=== PATIENT | female | born 1935 | race Hispanic/Latino ===

== ENCOUNTER 2017-08-27 09:54 | Inpatient (IN) | payer MEDICARE ==
[2017-08-27 11:12] VITALS: BMI 25.8
[2017-08-27 12:11] LABS: BASO # 0.03 K/mm3 (0.0-2.0); BASO % 0.4 % (0.0-3.0); EOS # 0.1 (0.0-0.7); GRAN # 4.46 (1.4-6.5); GRAN % 65.3 % (50.0-68.0); HEMOGLOBIN 12.8 g/dL (12.0-16.0); LYMPH # 1.7 (1.2-3.4); LYMPH % 25.1 % (22.0-35.0); MEAN CELL VOLUME 93.5 fl (80.0-105.0); MEAN CORPUSCULAR HEMOGLOBIN 31.9 pg (25.0-35.0); MEAN CORPUSCULAR HGB CONC 34.1 g/dl (31.0-37.0); MEAN PLATELET VOLUME 9.7 fl (7.0-11.0); MONO # 0.5 (0.1-0.6); MONO % 7.2 % (1.0-6.0); RBC 4.01 10^6/uL (3.5-6.1); RED CELL DISTRIBUTION WIDTH 12.8 % (11.5-14.5); WHITE BLOOD COUNT 6.8 10^3/ul (4.5-11.0)
[2017-08-27 12:25] LABS: ALB/GLOB RATIO 1.3 (1.1-1.8); ALBUMIN 4.5 g/dL (3.0-4.8); ALT/SGPT 28 U/L (7-56); AST/SGOT 27 U/L (14-36); BLOOD UREA NITROGEN 20 mg/dL (7-21); CALCIUM 9.9 mg/dL (8.4-10.5); GFR AFRICAN-AMERICAN > 60; GFR NON-AFRICAN AMERICAN > 60
[2017-08-27 12:34] LABS: INR 1.01 (0.93-1.08); PARTIAL THROMBOPLASTIN TIME 33.3 Seconds (25.1-36.5); PROTHROMBIN TIME 11.6 SECONDS (9.4-12.5)
--- NOTE | 2017-08-27 13:31 | ED PDOC ---
Arrival/HPI - General Chief Complaint: Lower Extremity Problem/Injury Time Seen by Provider: 08/27/17 11:26 Historian: Patient - History of Present Illness Narrative History of Present Illness (Text): 08/27/17 13:26 82yo female with pmhx of hypertension present with complaint of worsening cellulitis to her left lower leg. Patient states she was diagnosed by her PMD and has been on two different antibiotics at different times. Notes that the right lower leg infection improved, but the left became worse. she denies fever chills, nausea, calf pain, Le edema, chest pain, any other complaint. Past Medical History - Provider Review Nursing Documentation Reviewed: Yes - Cardiac Hx Hypertension: Yes - Musculoskeletal/Rheumatological Hx Arthritis: Yes - Psychiatric Hx Substance Use: No - Surgical History Hx Appendectomy: Yes Family/Social History - Physician Review Nursing Documentation Reviewed: Yes Family/Social History: Unknown Family HX Smoking Status: Unknown If Ever Smoked Hx Alcohol Use: No Hx Substance Use: No Allergies/Home Meds Allergies/Adverse Reactions: Allergies No Known Allergies Allergy (Verified 08/27/17 11:43) Home Medications: Home Meds Medication Instructions Recorded Confirmed Folic Acid [Folic Acid] 1 tab PO DAILY 08/27/17 08/27/17 Lisinopril [Zestril] 10 mg PO DAILY 08/27/17 08/27/17 Meloxicam [Mobic] 1 tab PO DAILY 08/27/17 08/27/17 Methotrexate 10 mg PO WED 08/27/17 08/27/17 Preservision Areds 2 Softgel 2 units PO BID 08/27/17 08/27/17 Review of Systems - Physician Review All systems were reviewed & negative as marked: Yes - Review of Systems Constitutional: Normal Eyes: Normal ENT: Normal Respiratory: Normal Cardiovascular: Normal Gastrointestinal: Normal Genitourinary Female: Normal Musculoskeletal: Normal Skin: Cellulitis (Left lower leg) Neurological: Normal Endocrine: Normal Hemo/Lymphatic: Normal Psychiatric: Normal Physical Exam Vital Signs Reviewed: Yes Vital Signs Temp Pulse Resp BP Pulse Ox 08/27/17 14:43 83 16 144/86 99 08/27/17 12:43 82 16 155/72 H 99 08/27/17 11:12 97.3 F L 72 16 165/73 H 98 Temperature: Afebrile Blood Pressure: Normal Pulse: Regular Respiratory Rate: Normal Appearance: Positive for: Well-Appearing, Non-Toxic, Comfortable Pain Distress: None Mental Status: Positive for: Alert and Oriented X 3 - Systems Exam Head: Present: Atraumatic, Normocephalic Pupils: Present: PERRL Extroacular Muscles: Present: EOMI Conjunctiva: Present: Normal Mouth: Present: Moist Mucous Membranes Neck: Present: Normal Range of Motion Respiratory/Chest: Present: Clear to Auscultation, Good Air Exchange. No: Respiratory Distress, Accessory Muscle Use Cardiovascular: Present: Regular Rate and Rhythm, Normal S1, S2. No: Murmurs Abdomen: No: Tenderness, Distention, Peritoneal Signs Back: Present: Normal Inspection Upper Extremity: Present: Normal Inspection. No: Cyanosis, Edema Lower Extremity: Present: NORMAL PULSES, Normal ROM, Tenderness (Left lower chin /anterior leg), Erythema (Left lower leg), Temperature Abnormalties (Warm to touch - left lower leg), Neurovascularly Intact. No: Edema, CALF TENDERNESS, Swelling Neurological: Present: GCS=15, CN II-XII Intact, Speech Normal Skin: Present: Warm, Dry, Normal Color. No: Rashes Psychiatric: Present: Alert, Oriented x 3, Normal Insight, Normal Concentration Medical Decision Making ED Course and Treatment: 08/27/17 20:08 Pt was not febrile, hemodynamically stable and comfortable in ED. She however had left lower extremity cellulitis. She failed outpt oral abx and will be admitted for IV abx. Vanco and Rocephin was ordered Blood culture pending EKG NSR @68bpm CXR NAD Doppler US - Negative for DVT Case was DW Dr. Del Real and he accepted pt for admission. 0 - Lab Interpretations Lab Results: 08/27/17 12:00 08/27/17 12:00 Lab Results 08/27/17 12:00: PT 11.6, INR 1.01, APTT 33.3 08/27/17 12:00: Sodium 145, Potassium 4.1, Chloride 109 H, Carbon Dioxide 24, Anion Gap 16, BUN 20, Creatinine 0.7, Est GFR ( Amer) > 60, Est GFR (Non- Af Amer) > 60, Random Glucose 102, Calcium 9.9, Total Bilirubin 0.5, AST 27, ALT 28, Alkaline Phosphatase 90, Total Protein 7.8, Albumin 4.5, Globulin 3.3, Albumin/Globulin Ratio 1.3 08/27/17 12:00: WBC 6.8, RBC 4.01, Hgb 12.8, Hct 37.5, MCV 93.5, MCH 31.9, MCHC 34.1, RDW 12.8, Plt Count 296, MPV 9.7, Gran % 65.3, Lymph % (Auto) 25.1, Placer % (Auto) 7.2 H, Eos % (Auto) 2.0, Baso % (Auto) 0.4, Gran # 4.46, Lymph # (Auto ) 1.7, Placer # (Auto) 0.5, Eos # (Auto) 0.1, Baso # (Auto) 0.03 - RAD Interpretation Radiology Orders: 08/27/17 13:59 DUPLEX LOWER EXTRM VEIN BILAT [US] Stat - Medication Orders Current Medication Orders: Folic Acid (Folic Acid) 1 mg PO DAILY [facility] Furosemide (Lasix) 40 mg IVP DAILY [facility] Ceftriaxone Sodium (Rocephin 1 Gram Ivpb) 1 gm in 100 mls @ 100 mls/hr IVPB DAILY [facility] PRN Reason: Protocol Vancomycin HCl (Vancomycin 1gm) 1 gm in 250 mls @ 167 mls/hr IVPB Q12H [facility] PRN Reason: Protocol Lisinopril (Zestril) 10 mg PO DAILY [facility] Meloxicam (Mobic) 15 mg PO DAILY [facility] Discontinued Medications Ceftriaxone Sodium (Rocephin 1 Gram Ivpb) 1 gm in 100 mls @ 200 mls/hr IVPB STAT STA PRN Reason: Protocol Stop: 08/27/17 14:29 Last Admin: 08/27/17 14:25 Dose: 200 mls/hr eMAR Start Stop Document 08/27/17 14:25 MS (Rec: 08/27/17 14:26 MS [id number]) Intravenous Solution Start Date 08/27/17 Start Time 14:26 End Date 08/27/17 End time 14:56 Total Infusion Time 30 Vancomycin HCl (Vancomycin 1gm) 1 gm in 250 mls @ 167 mls/hr IVPB STAT STA PRN Reason: Protocol Stop: 08/27/17 15:29 Last Admin: 08/27/17 15:25 Dose: 167 mls/hr eMAR Start Stop Document 08/27/17 15:25 MS (Rec: 08/27/17 15:26 MS [id number]) Intravenous Solution Start Date 08/27/17 Start Time 15:25 End Date 08/27/17 End time 16:55 Total Infusion Time 90 Meloxicam (Mobic) 7.5 mg PO DAILY [facility] Disposition/Present on Arrival - Present on Arrival Any Indicators Present on Arrival: No History of DVT/PE: No History of Uncontrolled Diabetes: No Urinary Catheter: No History of Decub. Ulcer: No History Surgical Site Infection Following: None - Disposition Have Diagnosis and Disposition been Completed?: Yes Diagnosis: Cellulitis Disposition: HOSPITALIZED Disposition Time: 14:05 Patient Problems: Current Active Problems Problem Status Onset Cellulitis Acute Condition: STABLE
[2017-08-27] MEDS ORDERED: cefTRIAXone 1 gm 1 GM/100 ML BAG IVPB STA (14:00)
[2017-08-27] MEDS ORDERED: Vancomycin 1gm in NS 250ml 1 GM/250 ML BAG IVPB STA (14:00)
--- NOTE | 2017-08-27 15:31 | RAD ---
HISTORY: admission COMPARISON: No prior. FINDINGS: LUNGS: No active pulmonary disease. PLEURA: No significant pleural effusion identified, no pneumothorax apparent. CARDIOVASCULAR: Normal. OSSEOUS STRUCTURES: No significant abnormalities. VISUALIZED UPPER ABDOMEN: Normal. OTHER FINDINGS: None. IMPRESSION: No active disease.
--- NOTE | 2017-08-27 16:57 | US ---
HISTORY: Leg pain and swelling. Evaluate for DVT PHYSICIAN(S): Filiberto Okeefe MD. TECHNIQUE: Duplex sonography and color-flow Doppler with graded compression were used to evaluate the deep venous systems of both lower extremities. The exam is limited by edema. The tibial veins are not well seen FINDINGS: The visualized deep venous systems of both lower extremities are sonographically normal and compressible. Normal wave forms and augmentation are seen. There is no sonographic evidence for deep venous thrombosis in the visualized segments of both lower extremities. IMPRESSION: No sonographic evidence for deep venous thrombosis in the visualized segments of both lower extremities.
[2017-08-27 20:32] LABS: HDL CHOLESTEROL 73 mg/dL (29-60)
[2017-08-27 20:43] LABS: LDL CHOLESTEROL 73 mg/dL (0-129)
--- NOTE | 2017-08-27 22:44 | CARD ---
APPROVED REPORT EKG Measurement Heart [id number] <Conclusion> Normal sinus rhythm Cannot rule out Anterior infarct, age undetermined Abnormal ECG
[2017-08-27] MEDS: Vancomycin 1gm in NS 250ml 1 GM/250 ML BAG IVPB SCH (22:47)
[2017-08-28] MEDS: Vancomycin 1gm in NS 250ml 1 GM/250 ML BAG IVPB SCH ×2 (06:38→18:04)
--- NOTE | 2017-08-28 07:00 | HP ---
HISTORY OF PRESENT ILLNESS: Patient is an 82-year-old, patient of Dr. Chase, who came to emergency room because of increasing leg swelling. Both legs are swollen, but left is more than the right. She was given antibiotics by her primary care doctor almost 2 weeks ago and the right leg got a little better, but left has still been red, warm, and swollen. Denies any chest pain. No shortness of breath. No nausea. No vomiting. PAST MEDICAL HISTORY: Significant for: 1. Hypertension. 2. Generalized osteoarthritis. ALLERGIES: SHE IS NOT ALLERGIC TO ANY MEDICATION. PAST SURGICAL HISTORY: Significant for appendectomy. MEDICATIONS AT HOME: She is on methotrexate, she takes 4 pills of 2.5 mg every Saturday. She is on Mobic 15 mg daily, lisinopril 10 mg daily, folic acid 1 mg daily. SOCIAL HISTORY: Denies smoking, drinking or alcohol use. PHYSICAL EXAMINATION: GENERAL: She is awake, alert, oriented, communicative. VITAL SIGNS: She is afebrile, pulse 83, respirations 16, blood pressure 140/86. LUNGS: Bilateral fair airflow. No rhonchi or crackle. HEART: S1 and S2 audible. ABDOMEN: Soft and nontender. No rebound. No guarding. NEUROLOGIC: Patient is awake, alert, oriented, communicative. EXTREMITIES: Bilateral legs, erythema, left more than the right. LABORATORY DATA: WBC 6.8, hemoglobin 12.8, hematocrit 37.5, platelets 296. PT 11.6, INR 1.06, PTT 33.3. Chemistry: Sodium 145, potassium 4.1, chloride 109, CO2 of 24, BUN 20, creatinine 0.7, blood sugar of 102. LFTs are within normal limit. She has bilateral leg Doppler negative for DVT . ASSESSMENT AND PLAN: 1. Left leg cellulitis. 2. History of rheumatoid arthritis. 3. Hypertension. 4. Hyperlipidemia. PLAN: So plan is, we will start patient on IV Lasix. We will start on IV antibiotic. Monitor the electrolyte since she is on diuretics. We will resume her usual medication. We will follow up the patient in the a.m. Dwight Del Real MD
[2017-08-28 08:06] LABS: ALB/GLOB RATIO 1.1 (1.1-1.8); ALBUMIN 3.3 g/dL (3.0-4.8); ALT/SGPT 31 U/L (7-56); AST/SGOT 24 U/L (14-36); BLOOD UREA NITROGEN 19 mg/dL (7-21); CALCIUM 8.9 mg/dL (8.4-10.5); GFR AFRICAN-AMERICAN > 60; GFR NON-AFRICAN AMERICAN > 60
[2017-08-28] MEDS: cefTRIAXone 1 gm 1 GM/100 ML BAG IVPB SCH (09:17)
[2017-08-28] MEDS: PRESERVISION AREDS PO SCH ×3 (10:00→18:04)
[2017-08-28] MEDS ORDERED: PRESERVISION AREDS PO SCH (10:00)
[2017-08-28] MEDS ORDERED: Meloxicam 7.5 MG TAB PO SCH ×2 (10:00)
--- NOTE | 2017-08-28 15:11 | PN ---
DATE: 08/28/2017 SUBJECTIVE: The patient is 82 years old, seen and examined, lying in bed, seems to be comfortable. Leg swelling has improved somewhat. No nausea or vomiting. No fever. No chills. PHYSICAL EXAMINATION: VITAL SIGNS: She is afebrile, pulse 66, respirations 18, blood pressure 141/67. LUNGS: Bilateral good airflow. No rhonchi or crackle. HEART: S1 and S2 audible. ABDOMEN: Soft. Nontender. No rebound. No guarding. NEUROLOGICAL: The patient is awake, alert, oriented, communicative. EXTREMITIES: Bilateral legs shows erythema, left more than the right plus +1 edema, left leg. LABORATORY DATA: Bilateral leg Doppler is negative. Blood cultures are negative. ASSESSMENT: 1. Left leg cellulitis and edema. 2. History of rheumatoid arthritis. 3. Hypertension. PLAN: We will continue the patient on vancomycin and Rocephin. Dr. Paige has been consulted. I will order for Lotrisone lotion to apply to the left camejo area. We will follow up this patient in the a.m. Dwight Del Real MD
[2017-08-28] MEDS ORDERED: Clotrimazole 1% Cream(30 gm) TOP SCH (18:00)
[2017-08-29] MEDS: Vancomycin 1gm in NS 250ml 1 GM/250 ML BAG IVPB SCH ×2 (06:01→18:11)
--- NOTE | 2017-08-29 06:17 | CON ---
DATE: 08/28/2017 HISTORY OF PRESENT ILLNESS: An 82-year-old female seen at bedside for consultation, evaluation and management of bilateral lower extremity pain and swelling. The patient reports a long history of recurrent bouts of lower extremity cellulitis which was usually resolved with a 1-week course of oral antibiotics. However, over the last few weeks, the patient's legs have become increasingly swollen, become increasingly edematous, erythematous and painful despite being on 2 weeks of oral antibiotics by her primary care doctor, Dr. Chase, who suggested she be admitted to the hospital for further evaluation and IV antibiotics. The patient states the left leg is much more painful than the right. DVTs have been ruled out. PAST MEDICAL HISTORY: Significant for essential hypertension, osteoarthritis and rheumatoid arthritis. ALLERGIES: SHE HAS NO KNOWN DRUG ALLERGIES. SOCIAL HISTORY: The patient is not , lives alone. Denies any history of smoking, alcohol abuse or alcohol usage. PAST SURGICAL HISTORY: Significant for appendectomy. FAMILY HISTORY: Unremarkable. HOME MEDICATIONS: Include lisinopril, Mobic, folic acid and methotrexate. OBJECTIVE: There is palpable pedal pulses noted bilaterally. Both lower extremity avoid of any appreciable edema at this time. There is noted to be absent pedal hair growth. Both lower extremities present with erythema and calor with left leg being greater than the right. There is pain upon palpation at the gastroc soleus complex of the left leg. There is no open lesions noted on either of the legs. There are no interdigital macerations. Both lower legs were examined for any clinical signs of portal of entry and there was found to be none. Both lower extremities present with thin, shiny, discolored skin with chronic venous stasis changes. IMAGING STUDIES: Duplex of the lower extremities bilaterally reveals no sonographic evidence for deep vein thrombosis. LABORATORY FINDINGS: Reveal a white count of 6.8, hemoglobin of 12.8, hematocrit of 37.5, platelet count of 296. ASSESSMENT: Bilateral lower extremity cellulitis, left greater than right. Deep venous thrombosis has been ruled out. PLAN: The patient's legs were examined. Dr. Del Real's note was read and appreciated. Agree with applying Lotrisone cream in an order to relieve her itching as well as decrease her erythema. Typically, cellulitis is more unilateral than bilateral. We would recommend vascular consult with Dr. Filiberto Okeefe to evaluate. We will order light compression stockings to be applied to both lower legs and order a tib-fib x-ray of the left leg to rule out any underlying pathology. The patient will be seen and followed daily. Augusto Paige DPM
[2017-08-29 09:07] LABS: HEMOGLOBIN 11.6 g/dL (12.0-16.0); MEAN CORPUSCULAR HEMOGLOBIN 31.9 pg (25.0-35.0); MEAN CORPUSCULAR HGB CONC 33.9 g/dl (31.0-37.0); MEAN PLATELET VOLUME 9.5 fl (7.0-11.0); RBC 3.64 10^6/uL (3.5-6.1); RED CELL DISTRIBUTION WIDTH 13.1 % (11.5-14.5); WHITE BLOOD COUNT 4.6 10^3/ul (4.5-11.0)
[2017-08-29 09:10] LABS: BLOOD UREA NITROGEN 20 mg/dL (7-21); CALCIUM 9.1 mg/dL (8.4-10.5); GFR AFRICAN-AMERICAN > 60; GFR NON-AFRICAN AMERICAN > 60
--- NOTE | 2017-08-29 10:12 | CP.PCM.PN ---
<Danile Bishopyazminlety - Last Filed: 08/29/17 10:05> Subjective - Date & Time of Evaluation Date of Evaluation: 08/29/17 Time of Evaluation: 10:05 - Subjective Subjective: Podiatry Progress note: Dr. Paige/Dr. Adams 82 year old female was seen and evaluated at bedside for bilateral LE cellulitis. Patient is AAOx3 and is in NAD. Patient reports that the right side feels a lot better today, left side still causes her pain. Denies of any acute overnight events. Denies of any other pedal complains at this time. Denies of F/ N/V/C/SOB/CP/headaches. Objective - Vital Signs/Intake and Output Vital Signs (last 24 hours): Temp Pulse Resp BP Pulse Ox 97.8 F 66 20 155/65 H 98 08/29/17 06:00 08/29/17 06:00 08/29/17 06:00 08/29/17 06:00 08/29/17 06:00 Intake and Output: 08/29/17 08/29/17 06:59 18:59 Intake Total 500 Balance 500 - Medications Medications: Current Medications Betamethasone/Clotrimazole (Lotrisone) 0 gm TOP BID [facility] Clotrimazole (Lotrimin 1%) 0 gm TOP BID [facility] Last Admin: 08/28/17 18:15 Dose: 1 applic Folic Acid (Folic Acid) 1 mg PO DAILY [facility] Last Admin: 08/28/17 09:17 Dose: 1 mg Furosemide (Lasix) 40 mg IVP DAILY [facility] Last Admin: 08/28/17 09:22 Dose: 40 mg Home Med (Home Med) 1 unit PO BID [facility] Ceftriaxone Sodium (Rocephin 1 Gram Ivpb) 1 gm in 100 mls @ 100 mls/hr IVPB DAILY [facility] PRN Reason: Protocol Last Admin: 08/28/17 09:17 Dose: 100 mls/hr Vancomycin HCl (Vancomycin 1gm) 1 gm in 250 mls @ 167 mls/hr IVPB Q12H [facility] PRN Reason: Protocol Last Admin: 08/29/17 06:01 Dose: 167 mls/hr Lisinopril (Zestril) 10 mg PO DAILY [facility] Last Admin: 08/28/17 09:22 Dose: 10 mg Meloxicam (Mobic) 15 mg PO DAILY [facility] Last Admin: 08/28/17 09:18 Dose: 15 mg - Labs Labs: 08/29/17 08:50 08/29/17 08:50 PT 11.6 SECONDS (9.4-12.5) 08/27/17 12:00 INR 1.01 (0.93-1.08) 08/27/17 12:00 APTT 33.3 Seconds (25.1-36.5) 08/27/17 12:00 - Constitutional Appears: Well, Non-toxic, No Acute Distress - Extremities Exam Additional comments: VASC: DP/PT pulses are palpable 2/4, Cap refill time: < 3 sec to all digits, Temp gradient warm to warm from proximal to distal on the left and warm to cool from proximal to distal on the right (warmth decreased on the left from yesterday), no pitting or non-pitting edema noted DERM: erythema localized mainly surrounding the distal leg (appears to be decreased from yesterday), no open lesions NEURO: Protective sensation grossly intact ORTHO: Pain on palpation of the left distal leg - Neurological Exam Neurological Exam: Alert, Awake, Oriented x3 - Psychiatric Exam Psychiatric exam: Normal Affect, Normal Mood Assessment and Plan - Assessment and Plan (Free Text) Assessment: 82 year old female was evaluated for cellulitis vs. vasculitis Plan: Patient seen and evaluated at bedside with attending Dr. Paige Labs, vitals and charts reviewed - afebrile, no leukocytosis Lotrisone cream applied to b/l LE Continue IV abx as per ID - Vancomycin, Ceftriaxone Vascular consult Will continue to monitor patient while in-house <Augusto Paige - Last Filed: 08/30/17 13:39> Objective - Vital Signs/Intake and Output Vital Signs (last 24 hours): Temp Pulse Resp BP Pulse Ox 98 F 63 18 142/69 97 08/30/17 06:00 08/30/17 10:39 08/30/17 06:00 08/30/17 10:40 08/30/17 06:00 Intake and Output: 08/30/17 08/30/17 06:59 18:59 Intake Total 620 Balance 620 - Medications Medications: Current Medications Betamethasone/Clotrimazole (Lotrisone) 0 gm TOP BID [facility] Last Admin: 08/30/17 10:41 Dose: 1 applic Folic Acid (Folic Acid) 1 mg PO DAILY [facility] Last Admin: 08/30/17 10:39 Dose: 1 mg Furosemide (Lasix) 40 mg IVP DAILY [facility] Last Admin: 08/30/17 10:40 Dose: 40 mg Home Med (Home Med) 1 unit PO BID [facility] Last Admin: 08/30/17 10:40 Dose: 1 unit Ceftriaxone Sodium (Rocephin 1 Gram Ivpb) 1 gm in 100 mls @ 100 mls/hr IVPB DAILY [facility] PRN Reason: Protocol Last Admin: 08/30/17 10:39 Dose: 100 mls/hr Vancomycin HCl (Vancomycin 1gm) 1 gm in 250 mls @ 167 mls/hr IVPB Q12H [facility] PRN Reason: Protocol Last Admin: 08/30/17 06:08 Dose: 167 mls/hr Lisinopril (Zestril) 10 mg PO DAILY [facility] Last Admin: 08/30/17 10:39 Dose: 10 mg Meloxicam (Mobic) 15 mg PO DAILY [facility] Last Admin: 08/30/17 10:39 Dose: 15 mg - Labs Labs: 08/29/17 08:50 08/29/17 08:50 PT 11.6 SECONDS (9.4-12.5) 08/27/17 12:00 INR 1.01 (0.93-1.08) 08/27/17 12:00 APTT 33.3 Seconds (25.1-36.5) 08/27/17 12:00 Attending/Attestation - Attestation I have personally seen and examined this patient.: Yes I have fully participated in the care of the patient.: Yes I have reviewed all pertinent clinical information, including history, physical exam and plan: Yes
[2017-08-29] MEDS: Clotrimazole/Betamethasone Cream(15 gm) TOP SCH ×2 (10:30→18:11)
[2017-08-29] MEDS: Home Med 1 UNIT PO SCH ×2 (10:31→18:11)
[2017-08-29] MEDS: cefTRIAXone 1 gm 1 GM/100 ML BAG IVPB SCH (10:31)
--- NOTE | 2017-08-29 14:03 | PN ---
DATE: 08/29/2017 SUBJECTIVE: The patient is 82 years old, seen and examined, lying in bed, seems to be comfortable. No nausea or vomiting. No diarrhea. PHYSICAL EXAMINATION: VITAL SIGNS: The patient is afebrile, pulse 66, respirations 20, blood pressure 155/69. LUNGS: Bilateral fair airflow. No rhonchi or crackle. HEART: S1 and S2 audible. ABDOMEN: Soft. Nontender. No rebound. No guarding. NEUROLOGICAL: The patient is awake and alert, able to communicate, ambulatory. EXTREMITIES: Bilateral legs cellulitis, left more pronounced than the right. ASSESSMENT: 1. Left leg cellulitis. 2. History of rheumatoid arthritis. 3. Hypertension. PLAN: We will continue antibiotics for now. Currently, she is on vancomycin and Rocephin. I will get ID input. Plan for possible skin biopsy. We will reevaluate the patient in the a.m. Dwight Del Real MD
[2017-08-29 15:03] VITALS: RESP 18
--- NOTE | 2017-08-29 17:31 | RAD ---
PROCEDURE: Radiographs of the left tibia and fibula. HISTORY: pain, and swelling in left lower leg COMPARISON: None available. TECHNIQUE: Frontal and lateral views obtained. FINDINGS: BONES: No fracture or destructive lesion. JOINT SPACES: Unremarkable. OTHER FINDINGS: None. IMPRESSION: Unremarkable radiographs of the left tibia and fibula.
[2017-08-30] MEDS: Vancomycin 1gm in NS 250ml 1 GM/250 ML BAG IVPB SCH (06:08)
[2017-08-30] MEDS: cefTRIAXone 1 gm 1 GM/100 ML BAG IVPB SCH (10:39)
[2017-08-30] MEDS: Home Med 1 UNIT PO SCH (10:40)
[2017-08-30] MEDS: Clotrimazole/Betamethasone Cream(15 gm) TOP SCH (10:41)
--- NOTE | 2017-08-30 12:45 | CP.PCM.PN ---
<DarioDanielyazminlety - Last Filed: 08/30/17 12:38> Subjective - Date & Time of Evaluation Date of Evaluation: 08/30/17 Time of Evaluation: 12:38 - Subjective Subjective: Podiatry Progress note: Dr. Paige/Dr. Adams 82 year old female was seen and evaluated at bedside for bilateral LE cellulitis. Patient is AAOx3 and is in NAD.Denies of any acute overnight events. Denies of any other pedal complains at this time. Denies of F/N/V/C/SOB/ CP/headaches. Objective - Vital Signs/Intake and Output Vital Signs (last 24 hours): Temp Pulse Resp BP Pulse Ox 98 F 63 18 142/69 97 08/30/17 06:00 08/30/17 10:39 08/30/17 06:00 08/30/17 10:40 08/30/17 06:00 Intake and Output: 08/30/17 08/30/17 06:59 18:59 Intake Total 620 Balance 620 - Medications Medications: Current Medications Betamethasone/Clotrimazole (Lotrisone) 0 gm TOP BID [facility] Last Admin: 08/30/17 10:41 Dose: 1 applic Folic Acid (Folic Acid) 1 mg PO DAILY [facility] Last Admin: 08/30/17 10:39 Dose: 1 mg Furosemide (Lasix) 40 mg IVP DAILY [facility] Last Admin: 08/30/17 10:40 Dose: 40 mg Home Med (Home Med) 1 unit PO BID [facility] Last Admin: 08/30/17 10:40 Dose: 1 unit Ceftriaxone Sodium (Rocephin 1 Gram Ivpb) 1 gm in 100 mls @ 100 mls/hr IVPB DAILY [facility] PRN Reason: Protocol Last Admin: 08/30/17 10:39 Dose: 100 mls/hr Vancomycin HCl (Vancomycin 1gm) 1 gm in 250 mls @ 167 mls/hr IVPB Q12H [facility] PRN Reason: Protocol Last Admin: 08/30/17 06:08 Dose: 167 mls/hr Lisinopril (Zestril) 10 mg PO DAILY [facility] Last Admin: 08/30/17 10:39 Dose: 10 mg Meloxicam (Mobic) 15 mg PO DAILY [facility] Last Admin: 08/30/17 10:39 Dose: 15 mg - Labs Labs: 08/29/17 08:50 08/29/17 08:50 PT 11.6 SECONDS (9.4-12.5) 08/27/17 12:00 INR 1.01 (0.93-1.08) 08/27/17 12:00 APTT 33.3 Seconds (25.1-36.5) 08/27/17 12:00 - Constitutional Appears: Well, Non-toxic, No Acute Distress - Extremities Exam Additional comments: VASC: DP/PT pulses are palpable 2/4, Cap refill time: < 3 sec to all digits, Temp gradient warm to warm from proximal to distal on the left and warm to cool from proximal to distal on the right (warmth decreased on the left from yesterday), no pitting or non-pitting edema noted DERM: erythema localized mainly surrounding the distal leg (appears to be decreased from yesterday), no open lesions NEURO: Protective sensation grossly intact ORTHO: Pain on palpation of the left distal leg - Neurological Exam Neurological Exam: Alert, Awake, Oriented x3 - Psychiatric Exam Psychiatric exam: Normal Affect, Normal Mood Assessment and Plan - Assessment and Plan (Free Text) Assessment: 82 year old female was evaluated for cellulitis vs. vasculitis Plan: Patient seen and evaluated at bedside with attending Dr. Paige Labs, vitals and charts reviewed - afebrile, no leukocytosis Consent taken for 2 mm punch bx 3 cc of 1% lidocaine plain administered prior to the punch bx Punch bx taken from the medial ankle and sent to pathology Tolerated the procedure well Dressing applied using adaptic, optifoam, DSD and POPPY No acute pathology noted on x-rays Continue IV abx as per ID - Vancomycin, Ceftriaxone Vascular consult Will continue to monitor patient while in-house <Augusto Paige - Last Filed: 08/30/17 13:41> Objective - Vital Signs/Intake and Output Vital Signs (last 24 hours): Temp Pulse Resp BP Pulse Ox 98 F 63 18 142/69 97 08/30/17 06:00 08/30/17 10:39 08/30/17 06:00 08/30/17 10:40 08/30/17 06:00 Intake and Output: 08/30/17 08/30/17 06:59 18:59 Intake Total 620 Balance 620 - Medications Medications: Current Medications Betamethasone/Clotrimazole (Lotrisone) 0 gm TOP BID [facility] Last Admin: 08/30/17 10:41 Dose: 1 applic Folic Acid (Folic Acid) 1 mg PO DAILY [facility] Last Admin: 08/30/17 10:39 Dose: 1 mg Furosemide (Lasix) 40 mg IVP DAILY [facility] Last Admin: 08/30/17 10:40 Dose: 40 mg Home Med (Home Med) 1 unit PO BID [facility] Last Admin: 08/30/17 10:40 Dose: 1 unit Ceftriaxone Sodium (Rocephin 1 Gram Ivpb) 1 gm in 100 mls @ 100 mls/hr IVPB DAILY [facility] PRN Reason: Protocol Last Admin: 08/30/17 10:39 Dose: 100 mls/hr Vancomycin HCl (Vancomycin 1gm) 1 gm in 250 mls @ 167 mls/hr IVPB Q12H [facility] PRN Reason: Protocol Last Admin: 08/30/17 06:08 Dose: 167 mls/hr Lisinopril (Zestril) 10 mg PO DAILY [facility] Last Admin: 08/30/17 10:39 Dose: 10 mg Meloxicam (Mobic) 15 mg PO DAILY [facility] Last Admin: 08/30/17 10:39 Dose: 15 mg - Labs Labs: 08/29/17 08:50 08/29/17 08:50 PT 11.6 SECONDS (9.4-12.5) 08/27/17 12:00 INR 1.01 (0.93-1.08) 08/27/17 12:00 APTT 33.3 Seconds (25.1-36.5) 08/27/17 12:00 Attending/Attestation - Attestation I have personally seen and examined this patient.: Yes I have fully participated in the care of the patient.: Yes I have reviewed all pertinent clinical information, including history, physical exam and plan: Yes
[2017-08-30 15:02] VITALS: BP 116/67; PULSE 75; TEMP 98.2; O2SAT 96
--- NOTE | 2017-08-30 22:35 | CON ---
DATE: 08/30/2017 LOCATION: Patient is in bed in room 572, bed 1. Patient was seen early this morning. CHIEF COMPLAINT: Left leg infection times several days. HISTORY OF PRESENT ILLNESS: This is an 82-year-old female with hypertension, osteoarthritis, rheumatoid arthritis, on methotrexate, history of appendectomy, tonsillectomy, given antibiotics, admitted on this admission because of a left leg infection. She states that she was given the antibiotic of Z-SERGE as outpatient without improvement and she is admitted for further treatment. REVIEW OF SYSTEMS: Reveals she denies any fevers, chills, nausea, vomiting, chest pain, shortness of breath, or cough. Twelve-point review of systems performed. No dysuria or frequency. No headaches or blurred vision. PAST MEDICAL HISTORY: Significant for hypertension, osteoarthritis, rheumatoid arthritis. PAST SURGICAL HISTORY: . ALLERGIES: PATIENT HAS NO KNOWN ALLERGIES. MEDICATIONS AT HOME: Include methotrexate and Zestril. PHYSICAL EXAMINATION: GENERAL: The patient is in bed, no acute distress, answered questions. VITAL SIGNS: Temperature of 98, heart rate of 63, blood pressure is 150/60, respiratory rate of 18. HEENT: Unremarkable. NECK: Supple. LUNGS: Have decreased breath sounds. HEART: Normal S1 and S2. ABDOMEN: Soft, nontender. No rebound or guarding. EXTREMITIES: Examination of the leg reveals both legs have petechiae, mild rash; however, left leg knee appears to have more erythema, warm to touch. LABORATORY DATA: White count of 6.8, hemoglobin of 12, platelets of 296. Coagulation is noted. Chemistries reveal a BUN of 20, creatinine of 0.7. Microbiology reveals the blood cultures are negative. Patient had an x-ray, which was negative and her chest x-ray, which was negative. X-ray of the leg, which revealed unremarkable. Patient's ultrasound was negative for DVT. ASSESSMENT AND PLAN: This is an 82-year-old female with hypertension, osteoarthritis, rheumatoid arthritis, on methotrexate with a mild left leg cellulitis, who is on vancomycin and ceftriaxone, negative cultures. If the patient is to be discharged, may use p.o. doxycycline for 3 to 5 days, 100 mg p.o. b.i.d. Patient is scheduled for a possible biopsy. Chilango Forbes MD [facility] # [id number]
--- NOTE | 2017-08-31 06:56 | DS ---
HISTORY OF PRESENT ILLNESS: The patient is 82 years old. The patient is seen and examined, doing well. No nausea, vomiting. No diarrhea. Eating and tolerating. PHYSICAL EXAMINATION: VITAL SIGNS: She is afebrile, pulse 63, respiration 18, blood pressure 142/69. LUNGS: Bilaterally good airflow. No rhonchi or crackle. HEART: S1, S2 audible. ABDOMEN: Soft, nontender. No rebound. No guarding. NEUROLOGIC: The patient is awake, alert, oriented, communicative. EXTREMITIES: She has bilateral erythema. Left camejo has erythema, but swelling has improved as compared to before. LABORATORY DATA: WBC is 4.6, hemoglobin 11.6, hematocrit 34.2, platelet 266. Chemistry: Sodium 144, potassium 4.2, chloride 108, CO2 of 26, BUN 20, creatinine 0.7. ASSESSMENT AND PLAN: Left leg cellulitis, etiology still unclear. Left leg edema. PLAN: We will continue IV antibiotics. Biopsy was taken by bedside, we will follow that up. We will start her on supportive stocking and TCU evaluation has been requested. Once she is accepted, she will be transferred to TCU. Dwight Del Real MD
--- NOTE | 2017-08-31 08:55 | DS ---
HISTORY OF PRESENT ILLNESS: The patient is an 82-year-old, who is being treated by Dr. Monet as outpatient with oral antibiotic with no significant relief so she was referred to Emergency Room for evaluation. She does have left camejo erythema. Has been on IV antibiotics, IV diuretics, being followed by Dr. Paige, had biopsy of left camejo skin and being transferred to TCU for completion of course of antibiotics and physical therapy. PHYSICAL EXAMINATION: GENERAL: She is awake, alert, oriented, communicative. VITAL SIGNS: She is afebrile, pulse 75, respirations 18, blood pressure 116/67. LUNGS: Bilateral good airflow. No rhonchi or crackle. HEART: S1, S2 audible. ABDOMEN: Soft, nontender. No rebound. No guarding. NEUROLOGIC: She is awake, alert, oriented, communicative. LABORATORY DATA: Her HDL is 73. Blood cultures are negative. ASSESSMENT: 1. Left leg cellulitis. 2. Rheumatoid arthritis. 3. Hypertension. PLAN: The patient is transferred to TCU. We will resume her medication. Encourage physical therapy. Dr. Paige will follow up patient in TCU. Dwight Del Real MD
== END 2017-08-30 15:13 | DRG 603 ==
LOC: ED 09:54 → ERH 14:18 → 5RSO 16:24
PROVIDERS: ADMIT Internal Medicine; ATTEND Internal Medicine
DX: L03.116 Cellulitis of left lower limb (principal); L03.115 Cellulitis of right lower limb; I10 Essential (primary) hypertension; M06.9 Rheumatoid arthritis, unspecified; E78.5 Hyperlipidemia, unspecified; M15.9 Polyosteoarthritis, unspecified; Z90.49 Acquired absence of other specified parts of digestive tract

== ENCOUNTER 2017-08-30 15:16 | Inpatient (IN) | payer OTHER, MEDICARE ==
[2017-08-30] MEDS: Clotrimazole/Betamethasone Cream(15 gm) TOP SCH (17:55)
[2017-08-30] MEDS: PRESERVISION AREDS PO SCH (17:56)
[2017-08-30] MEDS: Vancomycin 1gm in NS 250ml 1 GM/250 ML BAG IVPB SCH (17:56)
--- NOTE | 2017-08-31 08:02 | CON ---
DATE: 08/31/2017 LOCATION: The patient is seen earlier today in [facility], 321. CHIEF COMPLAINT: Left leg infection times several days. HISTORY OF PRESENT ILLNESS: This is an 82-year-old female with hypertension and osteoarthritis and rheumatoid arthritis. The patient on methotrexate for her rheumatoid arthritis. Developed bilateral lower extremity erythema and left leg more so, was given Z-Trae as outpatient. Admitted to the hospital, started on antibiotics, now transferred to [facility] for further care and physical therapy. Review of systems reveals the patient has no fevers and no chills. No nausea, no vomiting. REVIEW OF SYSTEMS: A 12-point review of systems is performed and no dysuria, frequency. No headaches or blurred vision. No neck pain. No sore throat. PAST MEDICAL HISTORY: Significant for hypertension, osteoarthritis and rheumatoid arthritis. PAST SURGICAL HISTORY: Significant for appendectomy and tonsillectomy. ALLERGIES: THE PATIENT HAS NO KNOWN ALLERGIES. MEDICATIONS AT HOME: Include methotrexate and Zestril. PHYSICAL EXAMINATION: GENERAL: The patient is in bed, in no acute distress with a temperature of 98, blood pressure is 120/60, respiratory rate OF 18, heart rate of 75. HEENT: Examination of HEENT is unremarkable. NECK: Supple. LUNGS: Have decreased breath sounds. HEART: Normal S1, S2. ABDOMEN: Soft, nontender. EXTREMITIES: Examination of leg is less erythema than yesterday, is improved, the left leg. No break in the skin. No discharge. Pulses are intact. ASSESSMENT AND PLAN: An 82-year-old female with hypertension, osteoarthritis and rheumatoid arthritis and a history of appendectomy, tonsillectomy, has no known allergies, admitted the patient on methotrexate now. #1 is left leg cellulitis, improving on vancomycin, Rocephin, may be able to switch to p.o. antibiotics to p.o. doxycycline 100 mg p.o. b.i.d. x5 days. The blood cultures are reported to be negative. X-ray of the tibia-fibula and x-ray is reviewed, which is unremarkable. The patient also had a chest x-ray on 08/27/2017, which is no active disease and an ultrasound. We will follow closely with you. Chilango Boghossian, MD
[2017-08-31] MEDS: Meloxicam 7.5 MG TAB PO SCH (09:37)
[2017-08-31] MEDS: Clotrimazole/Betamethasone Cream(15 gm) TOP SCH (09:39)
[2017-08-31] MEDS: PRESERVISION AREDS PO SCH ×2 (09:41→17:39)
--- NOTE | 2017-08-31 10:17 | CP.PCM.PN ---
<Libra Lomeli - Last Filed: 08/31/17 11:01> Subjective - Date & Time of Evaluation Date of Evaluation: 08/31/17 Time of Evaluation: 10:11 - Subjective Subjective: Podiatry Progress note: Dr. Paige/Dr. Adams 82 yo female was seen and evaluated for bilateral lower extremity cellulitis. Patient is AAOx3 and in NAD. No acute events overnight. She notes that her right leg appears to be improving. She states that she is in no pain. She denies any other pedal complaints at this time. Denies N/V/F/SOB/C/CP. Objective - Vital Signs/Intake and Output Vital Signs (last 24 hours): Temp Pulse Resp BP Pulse Ox 98.5 F 73 20 120/69 08/30/17 21:02 08/30/17 21:02 08/30/17 21:02 08/30/17 21:02 Intake and Output: 08/31/17 08/31/17 06:59 18:59 Intake Total 360 Output Total 1 Balance 359 - Medications Medications: Current Medications Betamethasone/Clotrimazole (Lotrisone) 1 gm TOP BID [facility] PRN Reason: Protocol Last Admin: 08/31/17 09:39 Dose: 1 applic Folic Acid (Folic Acid) 1 mg PO DAILY [facility] PRN Reason: Protocol Last Admin: 08/31/17 09:38 Dose: 1 mg Furosemide (Lasix) 40 mg IVP 0600 [facility] PRN Reason: Protocol Gabapentin (Neurontin) 100 mg PO TID [facility] PRN Reason: Protocol Last Admin: 08/31/17 09:37 Dose: 100 mg Ceftriaxone Sodium (Rocephin 1 Gram Ivpb) 1 gm in 100 mls @ 100 mls/hr IVPB 0600 [facility] PRN Reason: Protocol Vancomycin HCl (Vancomycin 1gm) 1 gm in 250 mls @ 167 mls/hr IVPB 0600,1800 [facility] PRN Reason: Protocol Last Admin: 08/30/17 17:56 Dose: 167 mls/hr Lisinopril (Zestril) 10 mg PO DAILY [facility] PRN Reason: Protocol Last Admin: 08/31/17 09:45 Dose: 10 mg Meloxicam (Mobic) 7.5 mg PO 0800 [facility] PRN Reason: Protocol Last Admin: 08/31/17 09:37 Dose: 7.5 mg Non-Formulary Medication (Preservision Areds 2 Softgel) 2 units PO BID [facility] Last Admin: 08/31/17 09:41 Dose: 2 units - Constitutional Appears: Well, Non-toxic, No Acute Distress - Head Exam Head Exam: ATRAUMATIC, NORMOCEPHALIC - Extremities Exam Additional comments: Vascular: DP and PT pulses are palpable 2/4 b/l, Capillary refill time < 3 sec to all digits b/l, Temp gradient warm to warm from proximal to distal on the left and warm to cool from proximal to distal on the right, no edema noted to bilateral lower extremities Derm: 2mm circular wound s/p punch biopsy to the left medial ankle with 100% granular base. No purulence. No signs of infection. Mild erythema noted to distal left lower extremity circumferentially. Neuro: Gross and protective sensation grossly intact Ortho: Tenderness to palpation of the left distal leg. No tenderness to palpation of right lower extremity - Neurological Exam Neurological Exam: Alert, Awake, Oriented x3 - Psychiatric Exam Psychiatric exam: Normal Affect, Normal Mood Assessment and Plan - Assessment and Plan (Free Text) Assessment: 82 yo female was seen and evaluated for bilateral lower extremity cellulitis. Plan: Patient seen and evaluated at bedside with Dr. Paige Afebrile- 98.5 (08/30/2017) Absent leukocytosis overnight Lotrisone cream applied to legs bilaterally -Lotrisone reordered for BID applications Punch biopsy site dressed with xeroform, DSD, POPPY F/u punch biopsy report Will continue to follow while patient is in house <Augusto Paige - Last Filed: 09/03/17 11:46> Objective - Vital Signs/Intake and Output Vital Signs (last 24 hours): Temp Pulse Resp BP Pulse Ox 97.8 F 83 16 119/64 95 09/03/17 10:00 09/03/17 10:00 09/03/17 10:00 09/03/17 10:00 09/02/17 16:05 Intake and Output: 09/03/17 09/03/17 06:59 18:59 Intake Total 420 Balance 420 - Medications Medications: Current Medications Folic Acid (Folic Acid) 1 mg PO DAILY [facility] PRN Reason: Protocol Last Admin: 09/03/17 09:25 Dose: 1 mg Ceftriaxone Sodium (Rocephin 1 Gram Ivpb) 1 gm in 100 mls @ 100 mls/hr IVPB 0600 [facility] PRN Reason: Protocol Last Admin: 09/03/17 05:17 Dose: 100 mls/hr Lisinopril (Zestril) 10 mg PO DAILY [facility] PRN Reason: Protocol Last Admin: 09/03/17 09:36 Dose: 10 mg Meloxicam (Mobic) 7.5 mg PO 0800 [facility] PRN Reason: Protocol Last Admin: 09/03/17 07:54 Dose: 7.5 mg Preservision Areds 2 Softgel (Home Med ) 0 units PO BID [facility] Last Admin: 09/03/17 09:25 Dose: 1 units - Labs Labs: 09/03/17 07:10 09/03/17 07:10 Attending/Attestation - Attestation I have personally seen and examined this patient.: Yes I have fully participated in the care of the patient.: Yes I have reviewed all pertinent clinical information, including history, physical exam and plan: Yes
[2017-08-31] MEDS: Vancomycin 1gm in NS 250ml 1 GM/250 ML BAG IVPB SCH (17:39)
--- NOTE | 2017-09-01 02:57 | HP ---
HISTORY OF PRESENT ILLNESS: Patient is 82 years old, who was referred by PMD, Dr. Paredes, for increasing left leg swelling and redness. Patient was being treated with antibiotics as outpatient, with no significant relief. PAST MEDICAL HISTORY: Patient does have a past medical history significant for rheumatoid arthritis, on methotrexate. She also has a history of hypertension and generalized osteoarthritis. PAST SURGICAL HISTORY: Significant for appendectomy and tonsillectomy. ALLERGIES: SHE IS NOT ALLERGIC TO ANY MEDICATIONS. MEDICATIONS: At home, she is on methotrexate 2.5 mg once a week. She is on lisinopril 10 mg daily, Mobic 15 mg daily, folic acid 1 mg daily. SOCIAL HISTORY: She denies smoking, drinking, or alcohol use. PHYSICAL EXAMINATION: GENERAL: She is awake, alert, and oriented, communicative. VITAL SIGNS: She is afebrile, pulse 71, respirations 16, blood pressure 106/62. LUNGS: Bilateral fair airflow. No rhonchi or crackle. HEART: S1 and S2 audible. ABDOMEN: Soft, obese, nontender. No rebound. No guarding. NEUROLOGICAL: She is awake, alert, and oriented. Able to communicate. EXTREMITIES: Left leg is wrapped in a dressing. Right camejo erythema is significantly improved. ASSESSMENT: 1. Left leg erythema and cellulitis. 2. Rheumatoid arthritis. 3. History of hypertension. PLAN: Patient had biopsy done on acute care floor yesterday, we will follow up that. Patient is complaining of tingling and numbness in her both extremities, has been started on gabapentin. Continue her on Rocephin and vancomycin as recommended by ID. Encourage ambulation. Follow up patient in a.m. Dwight Del Real MD
[2017-09-01] MEDS: cefTRIAXone 1 gm 1 GM/100 ML BAG IVPB SCH ×2 (05:51→06:12)
[2017-09-01] MEDS: Vancomycin 1gm in NS 250ml 1 GM/250 ML BAG IVPB SCH (06:30)
--- NOTE | 2017-09-01 08:56 | PN ---
DATE: 09/01/2016 SUBJECTIVE: The patient is in bed, seen earlier today in 321. No fevers and chills. PHYSICAL EXAMINATION: VITAL SIGNS: Temperature is 98, blood pressure is 120/70, respiratory rate 16. HEENT: Examination of HEENT is unremarkable. NECK: Supple. LUNGS: Have decreased breath sounds. HEART: Normal S1, S2. ABDOMEN: Soft. LABORATORY DATA: Laboratory examination is reviewed. ASSESSMENT AND PLAN: An 82-year-old female with past medical history of osteoarthritis and rheumatoid arthritis, on methotrexate; history of hypertension; admitted with a left leg cellulitis and on vancomycin and Rocephin. Her cultures from Acute Care are negative. We will discontinue the vancomycin. We will follow with you. We will continue the ceftriaxone. Chilango Forbes MD
[2017-09-01] MEDS: Clotrimazole/Betamethasone Cream(15 gm) TOP SCH ×2 (09:36→18:15)
[2017-09-01] MEDS: Meloxicam 7.5 MG TAB PO SCH (09:37)
[2017-09-01] MEDS: PRESERVISION AREDS PO SCH ×2 (09:39→18:07)
--- NOTE | 2017-09-01 10:32 | CP.PCM.PN ---
Subjective - Date & Time of Evaluation Date of Evaluation: 09/01/17 Time of Evaluation: 10:33 - Subjective Subjective: Podiatry Progress note: Dr. Paige/Dr. Adams 82 yo female was seen and evaluated for bilateral lower extremity cellulitis. Patient resting in bed comfortably, NAD. Patient admits to worsening lower extremity numbness since starting Neurontin. Patient states she previously only had numbness in her feet at night, however once she started taking Neurontin the numbness extended up to her legs and has been feeling these symptoms all day. Patient states she has had trouble walking as a result. Patient admits to feeling increased lethargy from the Neurontin as well. At present, patient offers no complaints to punch biopsy site. Denies N/V/F/D/C/SOB/EGAN. Objective - Vital Signs/Intake and Output Vital Signs (last 24 hours): Temp Pulse Resp BP Pulse Ox 97.4 F L 65 16 123/52 L 08/31/17 16:00 09/01/17 09:40 08/31/17 16:00 09/01/17 09:40 - Medications Medications: Current Medications Betamethasone/Clotrimazole (Lotrisone) 0 gm TOP BID [facility] Last Admin: 09/01/17 09:36 Dose: 1 cre Folic Acid (Folic Acid) 1 mg PO DAILY [facility] PRN Reason: Protocol Last Admin: 09/01/17 09:36 Dose: 1 mg Furosemide (Lasix) 40 mg IVP 0600 [facility] PRN Reason: Protocol Last Admin: 09/01/17 06:16 Dose: Not Given Gabapentin (Neurontin) 100 mg PO DAILY [facility] PRN Reason: Protocol Gabapentin (Neurontin) 200 mg PO HS [facility] PRN Reason: Protocol Last Admin: 08/31/17 22:27 Dose: Not Given Ceftriaxone Sodium (Rocephin 1 Gram Ivpb) 1 gm in 100 mls @ 100 mls/hr IVPB 0600 [facility] PRN Reason: Protocol Last Admin: 09/01/17 06:12 Dose: 100 mls/hr Lisinopril (Zestril) 10 mg PO DAILY [facility] PRN Reason: Protocol Last Admin: 09/01/17 09:40 Dose: 10 mg Meloxicam (Mobic) 7.5 mg PO 0800 [facility] PRN Reason: Protocol Last Admin: 09/01/17 09:37 Dose: 7.5 mg Preservision Areds 2 Softgel (Home Med ) 0 units PO BID [facility] Last Admin: 09/01/17 09:39 Dose: 1 units - Constitutional Appears: Well, Non-toxic, No Acute Distress - Head Exam Head Exam: ATRAUMATIC, NORMOCEPHALIC - Extremities Exam Additional comments: Lower extremities focused exam: Vascular: DP/PT pulses 2/4 b/l, Capillary refill time < 3 sec to all digits b/l , Temp gradient warm to warm from proximal to distal on the left and warm to cool from proximal to distal on the right, no edema noted bilaterally. Neuro: Gross and protective sensation grossly intact Derm: 2 mm circular punch biopsy wound at the left medial ankle with 100% granular base. No purulence. No clinical signs of active bacterial infection. Mild erythema noted to distal left lower extremity circumfirentially MSK: Mild pain on palpation of the left distal leg. No pain on palpation to the right lower extremity - Neurological Exam Neurological Exam: Alert, Awake, Oriented x3 - Psychiatric Exam Psychiatric exam: Normal Affect, Normal Mood Assessment and Plan - Assessment and Plan (Free Text) Assessment: 82 y/o female patient with bilateral lower extremity cellulitis, resolving Plan: Patient seen and evaluated Plan discussed in detail with attending Dr. Paige Afebrile Lotrisone cream applied to legs bilaterally Punch biopsy site dressed with xeroform, DSD, POPPY F/u punch biopsy report Podiatry will continue to follow
--- NOTE | 2017-09-01 13:21 | PN ---
DATE: 09/01/2016 SUBJECTIVE: The patient is 82 years old, seen and examined, sitting in chair, seems to be comfortable. Complained of numbness in both feet. No pain in the leg either. Eating and tolerating. PHYSICAL EXAMINATION: VITAL SIGNS: She is afebrile, pulse 65, respirations 16, blood pressure 123/52. LUNGS: Bilateral good airflow. No rhonchi or crackle. HEART: S1 and S2 audible. ABDOMEN: Soft. Nontender. No rebound. No guarding. NEUROLOGICAL: The patient is awake, alert, oriented, communicative. LABORATORY EXAM: No new lab available today. ASSESSMENT: 1. Bilateral leg cellulitis. 2. Hypertension. 3. Hyperlipidemia. 4. History of rheumatoid arthritis. PLAN: The patient does not like the effect of Neurontin, I will discontinue. We will continue all other medications. The patient had biopsy done and awaiting the results. Her left leg wound is being monitored by the podiatry team. I will discontinue Neurontin and we will follow up this patient in the a.m. Dwight Del Real MD
[2017-09-02] MEDS: cefTRIAXone 1 gm 1 GM/100 ML BAG IVPB SCH (05:58)
[2017-09-02] MEDS: Meloxicam 7.5 MG TAB PO SCH (08:13)
[2017-09-02] MEDS: Clotrimazole/Betamethasone Cream(15 gm) TOP SCH ×2 (09:45→17:48)
[2017-09-02] MEDS: PRESERVISION AREDS PO SCH ×2 (10:02→17:52)
[2017-09-02 17:21] VITALS: O2SAT 95
--- NOTE | 2017-09-02 17:55 | PN ---
DATE: 09/02/2017 SUBJECTIVE: The patient is in bed, in no acute distress. She was seen earlier today in 321. Her nausea has improved. PHYSICAL EXAMINATION: VITAL SIGNS: Temperature 98, blood pressure 136/60, respiratory rate of 18, heart rate of 88. HEENT: Unremarkable. NECK: Supple. LUNGS: Have decreased breath sounds. HEART: Normal S1, S2. ABDOMEN: Soft, nontender. EXTREMITIES: Leg is much improved, her left leg is almost resolved. ASSESSMENT AND PLAN: This is an 82-year-old female with history of rheumatoid arthritis and osteoarthritis. The patient is on methotrexate. The patient also with history of hypertension, admitted with left leg cellulitis, status post punch biopsy, awaiting for biopsy results Currently, on ceftriaxone. The patient's leg is much improved and may be able to discontinue the ceftriaxone and complete with p.o. doxycycline 100 mg p.o. b.i.d. for 3 to 5 days. Chilango Forbes MD
--- NOTE | 2017-09-03 01:43 | PN ---
DATE: 09/02/2017 SUBJECTIVE: This is an 82-year-old female seen in Transitional Care Unit for followup of a cellulitis to her left leg. Patient is seen at bedside with her family. She states that the redness in her leg has resolved. She has been on Rocephin since she has been admitted and they were putting betamethasone-clotrimazole on her legs. Patient is on methotrexate secondary to rheumatoid arthritis which probably predisposes to the cellulitis. I did know this patient many years ago, at which time, I had treated cellulitis to her legs as well as venous ulcers. She also had superficial thrombophlebitis at that time. We got her compression hose as well as a compression machine. She states she has not had an ulceration since that time and that is probably about 8 years ago, but she has had the cellulitis. She states she did get cellulitis when she was diagnosed with hypertension. PHYSICAL EXAMINATION: VITAL SIGNS: Reviewed. Her temperature is 98, her blood pressure is 151/76, and the respiratory rate is 20. LABORATORY DATA: Her labs are reviewed. Last Hematology was on 08/29/2017 with the 4.6 white blood cell count and the chemistry showed a random glucose of 117, BUN and creatinine was normal at 20 and 0.7 respectively. Microbiology: The blood culture showed no growth and there were no open wounds, so patient did not have a wound culture done. Patient did have a biopsy done on the left medial leg. At this time, there were no biopsy reports on the chart. Patient's leg was evaluated today. Her neurovascular status is intact. She does have very thin legs and she has rigid hammertoes x10 secondary to the rheumatoid arthritis. At the present time, there is no edema in the legs. There is a palpable vein cord in the calf area which is tender to touch. However, there is no longer any cellulitis in the legs. The biopsy punch site has closed without sequelae. ASSESSMENT: Rheumatoid arthritis, cellulitis, and chronic venous insufficiency. PLAN OF TREATMENT: The clotrimazole was stopped. The biopsy site was covered with a foam dressing to protect it. She was placed in SCOUT stockings. I did discuss with her and her daughter that she does have to use her compression stock. 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 Patient states she will be discharged on Saturday. We gave her an appointment to follow up at the office since she has no wounds and she will be seen a week from tomorrow. Patient will be seen by Dr. Paige tomorrow, pending biopsy results. Annette Adams DPM
--- NOTE | 2017-09-03 05:03 | PN ---
DATE: 09/02/2017 SUBJECTIVE: Patient is 82 years old. Seen and examined, lying in bed, seems to be comfortable. No nausea, vomiting, or diarrhea. Leg pain is better. Foot numbness is better. Cellulitis seems to be improving. Left leg is with dressing. Patient is complaining that she has blood pressures running low and she feels very weak. PHYSICAL EXAMINATION: GENERAL: She is awake, alert, oriented, communicative. VITAL SIGNS: She is afebrile, pulse 75, respirations 20, blood pressure 151/76. LUNGS: Bilateral good airflow. No rhonchi or crackle. HEART: S1 and S2 audible. ABDOMEN: Soft, nontender, no rebound, no guarding. NEUROLOGICAL: She is awake, alert, oriented, communicative, ambulatory. ASSESSMENT: 1. Bilateral leg cellulitis. 2. Hypertension. 3. Dizziness. PLAN: I will discontinue her Lasix. We will continue her Mobic, Rocephin. She will be discontinued after tomorrow's dose. Patient is scheduled to be discharged on Saturday. Dwight Del Real MD
[2017-09-03] MEDS: cefTRIAXone 1 gm 1 GM/100 ML BAG IVPB SCH (05:17)
[2017-09-03 07:47] LABS: ALB/GLOB RATIO 1.4 (1.1-1.8); ALBUMIN 3.9 g/dL (3.0-4.8); ALT/SGPT 28 U/L (7-56); AST/SGOT 31 U/L (14-36); BLOOD UREA NITROGEN 23 mg/dL (7-21); CALCIUM 9.4 mg/dL (8.4-10.5); GFR AFRICAN-AMERICAN > 60; GFR NON-AFRICAN AMERICAN > 60
[2017-09-03] MEDS: Meloxicam 7.5 MG TAB PO SCH (07:54)
[2017-09-03 08:21] LABS: BASO # 0.05 K/mm3 (0.0-2.0); BASO % 1.1 % (0.0-3.0); EOS # 0.4 (0.0-0.7); EOS % 8.4 % (1.5-5.0); GRAN # 2.12 (1.4-6.5); GRAN % 48.3 % (50.0-68.0); HEMOGLOBIN 11.8 g/dL (12.0-16.0); LYMPH # 1.3 (1.2-3.4); LYMPH % 30.2 % (22.0-35.0); MEAN CELL VOLUME 93.6 fl (80.0-105.0); MEAN CORPUSCULAR HEMOGLOBIN 31.4 pg (25.0-35.0); MEAN CORPUSCULAR HGB CONC 33.5 g/dl (31.0-37.0); MEAN PLATELET VOLUME 9.8 fl (7.0-11.0); MONO # 0.5 (0.1-0.6); RBC 3.76 10^6/uL (3.5-6.1); RED CELL DISTRIBUTION WIDTH 13.1 % (11.5-14.5); WHITE BLOOD COUNT 4.4 10^3/ul (4.5-11.0)
[2017-09-03] MEDS: PRESERVISION AREDS PO SCH ×2 (09:25→17:29)
[2017-09-03 10:10] VITALS: RESP 16; TEMP 97.8
--- NOTE | 2017-09-03 12:23 | CP.PCM.PN ---
Addendum entered and electronically signed by Kiki Grady DPM 09/03/17 12:37 : Pathology report shows focal granulation tissue with epidermal atrophy; no malignancy identified Results given to patient Patient is to f/u in office with Dr. Adams on 09/10/17, will be fitted for compression stockings Pt stable for discharge from podiatry standpoint Original Note: <Kiki Grady - Last Filed: 09/03/17 12:36> Subjective - Date & Time of Evaluation Date of Evaluation: 09/03/17 Time of Evaluation: 12:22 - Subjective Subjective: 82 y/o female seen at bedside with attending Dr. Paige for bilateral lower extremity cellulitis. Pt denies pain to the lower extremities or to the leg biopsy site. States she is going home tomorrow as her antibiotic finished today. States she will be following up with Dr. Adams in her office on Saturday. Denies F/C/N/V/CP/SOB. Objective - Vital Signs/Intake and Output Vital Signs (last 24 hours): Temp Pulse Resp BP Pulse Ox 97.8 F 83 16 119/64 95 09/03/17 10:00 09/03/17 10:00 09/03/17 10:00 09/03/17 10:00 09/02/17 16:05 Intake and Output: 09/03/17 09/03/17 06:59 18:59 Intake Total 420 Balance 420 - Medications Medications: Current Medications Folic Acid (Folic Acid) 1 mg PO DAILY EMANUEL PRN Reason: Protocol Last Admin: 09/03/17 09:25 Dose: 1 mg Ceftriaxone Sodium (Rocephin 1 Gram Ivpb) 1 gm in 100 mls @ 100 mls/hr IVPB 0600 EMANUEL PRN Reason: Protocol Last Admin: 09/03/17 05:17 Dose: 100 mls/hr Lisinopril (Zestril) 10 mg PO DAILY EMANUEL PRN Reason: Protocol Last Admin: 09/03/17 09:36 Dose: 10 mg Meloxicam (Mobic) 7.5 mg PO 0800 EMANUEL PRN Reason: Protocol Last Admin: 09/03/17 07:54 Dose: 7.5 mg Preservision Areds 2 Softgel (Home Med ) 0 units PO BID EMANUEL Last Admin: 09/03/17 09:25 Dose: 1 units - Labs Labs: 07/03/18 07:10 09/03/17 07:10 - Constitutional Appears: Well, Non-toxic, No Acute Distress - Extremities Exam Additional comments: Lower extremity focused exam: Vascular: DP/PT pulses 2/4 B/L, CFT < 3 sec to all digits B/L, Temp gradient warm to warm from proximal to distal on the left and warm to cool from proximal to distal on the right, no edema noted B/L Neuro: Gross and protective sensation grossly intact Derm: 2 mm circular punch biopsy wound at the left medial ankle with 100% granular base. No purulence. No clinical signs of active bacterial infection. Mild erythema noted to distal left lower extremity B/L Ortho: Mild pain on palpation of the left distal leg. No pain on palpation to the right lower extremity - Neurological Exam Neurological Exam: Alert, Awake, Oriented x3 - Psychiatric Exam Psychiatric exam: Normal Affect, Normal Mood Assessment and Plan - Assessment and Plan (Free Text) Assessment: 82 y/o female patient with bilateral lower extremity cellulitis Plan: Patient seen and evaluated with attending Dr. Grecia Crespo-hydrin lotion applied to legs B/L Punch biopsy site dressed with xeroform, DSD, POPPY F/u punch biopsy report Podiatry will continue to follow <Augusto Paige - Last Filed: 09/06/17 10:57> Objective - Vital Signs/Intake and Output Vital Signs (last 24 hours): Temp Pulse Resp BP Pulse Ox 97.8 F 62 16 121/73 95 09/03/17 10:00 09/04/17 09:30 09/03/17 10:00 09/04/17 09:30 09/02/17 16:05 - Labs Labs: 09/03/17 07:10 09/03/17 07:10 Attending/Attestation - Attestation I have personally seen and examined this patient.: Yes I have fully participated in the care of the patient.: Yes I have reviewed all pertinent clinical information, including history, physical exam and plan: Yes
--- NOTE | 2017-09-03 20:27 | PN ---
DATE: 09/03/2017 SUBJECTIVE: The patient is 82 years old, seen and examined, lying in bed. Seems to be comfortable. She was admitted because of increasing leg redness and swelling, left more than the right. Has been on IV antibiotic with diuretic. Right leg swelling completely resolved; however, left leg swelling, she still has redness, but swelling has significantly improving, was being followed by Dr. Paige and dressing is being done. She even had a biopsy done to rule out rheumatoid process, but biopsy came out negative. Finished course of 7 days of antibiotic. She received her last antibiotic today. PHYSICAL EXAMINATION: GENERAL: She is awake, alert, oriented, communicative. VITAL SIGNS: She is afebrile, pulse 83, respirations 16, blood pressure 119/65. LUNGS: Bilateral good airflow. No rhonchi or crackle. HEART: S1 and S2 audible. ABDOMEN: Soft. Nontender. No rebound. No guarding. NEUROLOGICAL: She is awake, alert, oriented, communicative, ambulatory. EXTREMITIES: Bilateral leg, slight erythema, left more than the right. No swelling. LABORATORY EXAM: WBC 4.4, hemoglobin 11.8, hematocrit 35.2, platelet 283. Chemistry: Sodium 144, potassium 4.6, chloride 106, CO2 of 28, BUN 23creatinine 0.8, blood sugar of 87. ASSESSMENT: 1. Left leg cellulitis, improved. 2. Left leg edema, improved. 3. Hypertension. 4. Hypothyroidism. 5. History of rheumatoid arthritis. PLAN: We will continue local wound care. She is going to be discharged in the a.m. She will follow up with her PMD. Dwight Del Real MD
--- NOTE | 2017-09-03 23:39 | PN ---
DATE: 09/03/2017 SUBJECTIVE: The patient is in bed, in no acute distress. PHYSICAL EXAMINATION: VITAL SIGNS: Temperature is 97, blood pressure is 119/60, respiratory rate of 18. HEENT: Unremarkable. NECK: Supple. LUNGS: Have decreased breath sounds. HEART: Normal S1, S2. ABDOMEN: Soft, nontender. LABORATORY EXAMINATION: Reveals a white count of 4.4, hemoglobin of 11, platelets of 283. Chemistry reveals BUN of 23, creatinine of 0.8. Microbiology noted. ASSESSMENT/PLAN This is an 82-year-old female with a history of rheumatoid arthritis and osteoarthritis on methotrexate, who was seen early this morning. The leg looks much improved, status post punch biopsy and may switch to p.o. doxycycline 100 mg p.o. b.i.d. x3 days upon discharge. Chilango Forbes MD
[2017-09-04] MEDS: Meloxicam 7.5 MG TAB PO SCH (07:57)
[2017-09-04] MEDS: PRESERVISION AREDS PO SCH (09:30)
[2017-09-04 09:31] VITALS: BP 121/73; PULSE 62
--- NOTE | 2017-09-04 12:41 | PN ---
DATE: 09/04/2017 SUBJECTIVE: The patient is in bed, in no acute distress. She was seen earlier today in 321. No fevers and chills. The leg is much improved. PHYSICAL EXAMINATION: VITAL SIGNS: On exam, temperature is 98, blood pressure is 120/70, respiratory rate of 18. HEENT: Examination of HEENT is unremarkable. NECK: Supple. LUNGS: Have decreased breath sounds. HEART: Normal S1, S2. ABDOMEN: Soft, nontender. EXTREMITIES: The leg is much improved. LABORATORY DATA: Laboratory examination reveals a white count of 4.4, hemoglobin of 11, BUN of 23, creatinine 0.8. Microbiology is noted. Review of orders reveals the patient's medications are noted. ASSESSMENT AND PLAN: An 82-year-old female with past medical history of rheumatoid arthritis and osteoarthritis. The patient is on methotrexate. She was admitted with a leg cellulitis. Had a punch biopsy. The patient may be able to switch to p.o. and be discharged to follow up as outpatient. Follow up results including the biopsy results. Chilango Forbes MD
== END 2017-09-04 10:10 | disposition home or self-care (01) | DRG 603 ==
LOC: TRCU 15:16
PROVIDERS: ADMIT Internal Medicine; ATTEND Internal Medicine
PROC: F07Z9ZZ Gait Training/Functional Ambulation Treatment (ICD-10-PCS; principal; 2017-08-31)
PROC: F08Z4ZZ Home Management Treatment (ICD-10-PCS; 2017-09-01)
DX: L03.115 Cellulitis of right lower limb (principal); L03.116 Cellulitis of left lower limb; M06.9 Rheumatoid arthritis, unspecified; M15.9 Polyosteoarthritis, unspecified; I10 Essential (primary) hypertension; I87.2 Venous insufficiency (chronic) (peripheral); E03.9 Hypothyroidism, unspecified; E78.5 Hyperlipidemia, unspecified; R42 Dizziness and giddiness; Z79.1 Long term (current) use of non-steroidal anti-inflammatories (NSAID)